=== PATIENT | female | born 1950 | race Caucasian/White ===

== ENCOUNTER 2016-11-10 17:52 | Inpatient (IN) | payer OTHER ==
[~2016-11-10] VITALS: Ht 157.5 cm; Wt 64.5 kg
[2016-11-10] MEDS ORDERED: NORTRIPTYLINE H10 MG PO (18:17)
[2016-11-10] MEDS ORDERED: TOLTERODINE TART4 MG PO (18:17)
[2016-11-10] MEDS ORDERED: QUINAPRIL HCL40 MG PO (18:18)
[2016-11-10] MEDS ORDERED: ALPRAZOLAM1 MG PO (18:18)
[2016-11-10] MEDS ORDERED: RANITIDINE HCL150 MG PO (18:19)
[2016-11-10] MEDS ORDERED: FLUOXETINE HCL40 MG PO (18:19)
[2016-11-10] MEDS ORDERED: CETIRIZINE HCL10 M2 PO (18:20)
[2016-11-10 18:35] LABS: EOSINOPHIL (%) 1.4 % (0-5); EOSINOPHIL COUNT 0.1 K/uL (0-0.3); HEMATOCRIT 46.7 % (36.0-46.0); IMMATURE GRANULOCYTE (%) 0.4 % (0.0-0.7); INSTRUMENT ABS NEUTROPHIL CT 4.6 K/uL; LYMPHOCYTE COUNT 1.6 K/uL (1.0-2.8); MCHC 33.6 G/DL (30.0-36.0); MCV 89.1 FL (83-99); MEAN PLAT.VOLUME 9.9 uM^3 (9.5-12.4); MONOCYTE (%) 11.2 % (3-12); MONOCYTE COUNT 0.8 K/uL (0-0.8); NEUTROPHIL COUNT 4.6 K/uL (1.8-6.4); PLATELET COUNT 297 K/uL (156-360); RBC DIS.WIDTH-CV 14.1 % (11.8-14.6); RBC DIS.WIDTH-SD 46.2 % (39-53); RED BLOOD COUNT 5.24 M/uL (3.80-5.20); WHITE BLOOD COUNT 7.3 K/uL (4.1-10.2)
[2016-11-10 18:46] LABS: CHLORIDE 107 mEq/L (99-109); POTASSIUM 3.9 mEq/L (3.7-5.4); PROTHROMBIN TIME 10.4 (9.2-11.2); SODIUM 140 mEq/L (136-147)
[2016-11-10 18:48] LABS: GLUCOSE 118 mg/dL (70-99)
[2016-11-10 18:49] LABS: ANION GAP 10 MEQ/L (2-14)
[2016-11-10 18:52] LABS: GFR ESTIMATE (CALCULATED) > 59 mL/min/
[2016-11-10 18:53] LABS: UREA NITROGEN (BUN) 14 mg/dL (9-23)
[2016-11-10 23:52] VITALS: BP 192/102
[2016-11-11 02:49] LABS: HDL CHOLESTEROL 74 MG/DL (Desirable>=50); LDL CHOLESTEROL 133 mg/dL (Desirable<100); NON-HDL CHOLESTEROL 178 mg/dL (Desirable<160); SAMPLE HEMOLYSIS CHECK 0; SAMPLE ICTERIC CHECK 0; SAMPLE LIPEMIA CHECK 0; TOTAL CHOLESTEROL 252 mg/dL (Desirable<200); TRIGLYCERIDES 224 MG/DL (Normal: <150)
[2016-11-11 04:00] VITALS: BP 139/85
[2016-11-11 07:14] LABS: HEMATOCRIT 42.5 % (36.0-46.0); MCH 30.9 PG (29.0-34.0); MCHC 34.4 G/DL (30.0-36.0); MEAN PLAT.VOLUME 10.4 uM^3 (9.5-12.4); PLATELET COUNT 250 K/uL (156-360); RBC DIS.WIDTH-CV 14.2 % (11.8-14.6); RBC DIS.WIDTH-SD 47.2 % (39-53); RED BLOOD COUNT 4.72 M/uL (3.80-5.20); WHITE BLOOD COUNT 5.5 K/uL (4.1-10.2)
[2016-11-11 07:37] LABS: ALKALINE PHOSPHATASE 73 IU/L (3-129); ANION GAP 7 MEQ/L (2-14); CHLORIDE 106 MEQ/L (99-109); GFR ESTIMATE (CALCULATED) > 59 mL/min/; GLUCOSE 90 mg/dL (70-99); POTASSIUM 3.9 MEQ/L (3.7-5.4); SAMPLE HEMOLYSIS CHECK 0; SAMPLE ICTERIC CHECK 0; SAMPLE LIPEMIA CHECK 0; SODIUM 138 MEQ/L (136-147); TOTAL BILIRUBIN 0.5 MG/DL (0.0-1.0); UREA NITROGEN (BUN) 12 mg/dL (9-23)
[2016-11-11 07:40] VITALS: BP 150/75
[2016-11-11 11:20] VITALS: BP 180/87
[2016-11-11 15:06] VITALS: BP 166/77
[2016-11-11 20:00] VITALS: BP 190/92
[2016-11-12] VITALS: BP 156/94
[2016-11-12 04:00] VITALS: BP 175/86
[2016-11-12 06:43] LABS: EOSINOPHIL (%) 2.2 % (0-5); EOSINOPHIL COUNT 0.1 K/uL (0-0.3); HEMATOCRIT 42.5 % (36.0-46.0); IMMATURE GRANULOCYTE (%) 0.2 % (0.0-0.7); INSTRUMENT ABS NEUTROPHIL CT 3.7 K/uL; LYMPHOCYTE COUNT 1.4 K/uL (1.0-2.8); MCH 30.9 PG (29.0-34.0); MCHC 34.6 G/DL (30.0-36.0); MCV 89.5 FL (83-99); MEAN PLAT.VOLUME 10.3 uM^3 (9.5-12.4); MONOCYTE (%) 10.6 % (3-12); MONOCYTE COUNT 0.6 K/uL (0-0.8); NEUTROPHIL (%) 63.3 % (45-76); NEUTROPHIL COUNT 3.7 K/uL (1.8-6.4); PLATELET COUNT 257 K/uL (156-360); RBC DIS.WIDTH-CV 13.9 % (11.8-14.6); RBC DIS.WIDTH-SD 45.4 % (39-53); RED BLOOD COUNT 4.75 M/uL (3.80-5.20); WHITE BLOOD COUNT 5.8 K/uL (4.1-10.2)
[2016-11-12 07:04] LABS: ANION GAP 9 MEQ/L (2-14); CHLORIDE 108 MEQ/L (99-109); GFR ESTIMATE (CALCULATED) > 59 mL/min/; GLUCOSE 87 mg/dL (70-99); POTASSIUM 3.7 MEQ/L (3.7-5.4); SAMPLE HEMOLYSIS CHECK 0; SAMPLE ICTERIC CHECK 0; SAMPLE LIPEMIA CHECK 0; SODIUM 139 MEQ/L (136-147); UREA NITROGEN (BUN) 7 mg/dL (9-23)
[2016-11-12 07:42] VITALS: BP 190/86
[2016-11-12 07:53] LABS: Estimated Average Glucose 117 mg/dL (70-123); HEMOGLOBIN A1c (GLYCOHEMOGLOB) 5.7 % HGB (Below 5.7)
[2016-11-12 11:31] VITALS: BP 158/82
[2016-11-12 15:40] VITALS: BP 160/85
[2016-11-12 19:57] VITALS: BP 178/89
[2016-11-13 00:40] VITALS: BP 192/117
[2016-11-13 03:50] VITALS: BP 166/91
[2016-11-13 07:44] VITALS: BP 143/82
[2016-11-13] MEDS ORDERED: Anxiety Med (11:32)
[2016-11-13 16:06] VITALS: BP 142/80
[2016-11-14] VITALS: BP 131/79
[2016-11-14 08:00] VITALS: BP 131/75
[2016-11-14] MEDS ORDERED: NICOTINE PATCH1 EAC2 TD (11:09)
[2016-11-14] MEDS ORDERED: CLOPIDOGREL75 MG PO (11:09)
[2016-11-14] MEDS ORDERED: APRESOLINE20 MG/ML IV (11:10)
[2016-11-14] MEDS ORDERED: ATORVASTATIN CA40 MG PO (11:10)
[2016-11-14] MEDS ORDERED: LISINOPRIL40 MG PO (11:10)
[2016-11-14] MEDS ORDERED: Magic Mouthwash Garg MM (11:10)
[2016-11-14] MEDS ORDERED: ALPRAZOLAM0.5 MG PO (11:11)
[2016-11-14] MEDS ORDERED: TYLENOL REGULA325 MG PO (11:11)
[2016-11-14] MEDS ORDERED: PEPCID20 MG PO (14:07)
== END 2016-11-14 11:44 | DRG 65 ==
LOC: EME → EDBD 17:52 → EME 17:52 → EDOF 22:33 → 5SOUTH 22:33
PROVIDERS: Emergency Medicine; Internal Medicine
DX: I63.9 Cerebral infarction, unspecified (principal); G81.91 Hemiplegia, unspecified affecting right dominant side; R47.81 Slurred speech; R47.1 Dysarthria and anarthria; E11.9 Type 2 diabetes mellitus without complications; E78.5 Hyperlipidemia, unspecified; F17.210 Nicotine dependence, cigarettes, uncomplicated; F32.9 Major depressive disorder, single episode, unspecified; I10 Essential (primary) hypertension; K21.9 Gastro-esophageal reflux disease without esophagitis; F41.9 Anxiety disorder, unspecified; I69.398 Other sequelae of cerebral infarction; H53.9 Unspecified visual disturbance; Z91.81 History of falling; Z91.14 Patient's other noncompliance with medication regimen
CPT/HCPCS: 70450; 70551; 80048; 80053; 80061; 83036; 85025; 85027; 85610; 92526 GN; 92610 GN; 93005; 93306; 93880; 97530 GO; 97530 GP; 99281; 99285; J0360; J1644; J2060; J7030; S0028

== ENCOUNTER 2016-11-14 08:10 | Inpatient (IN) | payer OTHER ==
[~2016-11-14] VITALS: Ht 157.5 cm; Wt 63.2 kg
[~2016-11-14 08:10] MED LIST: ALPRAZOLAM1 MG PO; Anxiety Med; CETIRIZINE HCL10 M2 PO; FLUOXETINE HCL40 MG PO; NORTRIPTYLINE H10 MG PO; QUINAPRIL HCL40 MG PO; RANITIDINE HCL150 MG PO; TOLTERODINE TART4 MG PO
[2016-11-14] MEDS ORDERED: CLOPIDOGREL75 MG PO (11:09)
[2016-11-14] MEDS ORDERED: NICOTINE PATCH1 EAC2 TD (11:09)
[2016-11-14] MEDS ORDERED: Magic Mouthwash Garg MM (11:10)
[2016-11-14] MEDS ORDERED: LISINOPRIL40 MG PO (11:10)
[2016-11-14] MEDS ORDERED: APRESOLINE20 MG/ML IV (11:10)
[2016-11-14] MEDS ORDERED: ATORVASTATIN CA40 MG PO (11:10)
[2016-11-14] MEDS ORDERED: ALPRAZOLAM0.5 MG PO (11:11)
[2016-11-14] MEDS ORDERED: TYLENOL REGULA325 MG PO (11:11)
[2016-11-14 11:50] VITALS: BP 136/77
[2016-11-14] MEDS ORDERED: PEPCID20 MG PO (14:07)
[2016-11-14 15:19] VITALS: BP 128/72
[2016-11-15 04:43] VITALS: BP 95/55
[2016-11-15 07:08] LABS: HEMATOCRIT 46.5 % (36.0-46.0); MCH 31.3 PG (29.0-34.0); MCHC 35.1 G/DL (30.0-36.0); MCV 89.3 FL (83-99); MEAN PLAT.VOLUME 10.4 uM^3 (9.5-12.4); PLATELET COUNT 260 K/uL (156-360); RBC DIS.WIDTH-CV 14.2 % (11.8-14.6); RBC DIS.WIDTH-SD 46.3 % (39-53); RED BLOOD COUNT 5.21 M/uL (3.80-5.20); WHITE BLOOD COUNT 7.2 K/uL (4.1-10.2)
[2016-11-15 07:38] LABS: ALKALINE PHOSPHATASE 82 IU/L (3-129); ANION GAP 7 MEQ/L (2-14); CHLORIDE 100 MEQ/L (99-109); GFR ESTIMATE (CALCULATED) > 59 mL/min/; GLUCOSE 107 mg/dL (70-99); POTASSIUM 3.9 MEQ/L (3.7-5.4); SAMPLE HEMOLYSIS CHECK 0; SAMPLE ICTERIC CHECK 0; SAMPLE LIPEMIA CHECK 0; SODIUM 134 MEQ/L (136-147); TOTAL BILIRUBIN 0.5 MG/DL (0.0-1.0)
[2016-11-15 07:42] LABS: UREA NITROGEN (BUN) 24 mg/dL (9-23)
[2016-11-15 15:49] VITALS: BP 106/63
[2016-11-16 04:49] VITALS: BP 106/59
[2016-11-16 15:00] VITALS: BP 108/64
[2016-11-17 05:27] VITALS: BP 99/57
[2016-11-17 08:49] VITALS: BP 120/76
[2016-11-17 18:00] VITALS: BP 115/63
[2016-11-17 19:20] VITALS: BP 119/58
[2016-11-17 20:43] VITALS: BP 108/56
[2016-11-18 05:13] VITALS: BP 102/50
[2016-11-18 15:40] VITALS: BP 104/61
[2016-11-19 05:10] VITALS: BP 133/77
[2016-11-19 16:37] VITALS: BP 145/65
[2016-11-20 05:02] VITALS: BP 125/71
[2016-11-20 15:37] VITALS: BP 117/65
[2016-11-21 06:11] VITALS: BP 110/63
[2016-11-21 09:30] VITALS: BP 118/59
[2016-11-21 15:05] VITALS: BP 108/64
[2016-11-22 04:55] VITALS: BP 90/53
[2016-11-22 15:35] VITALS: BP 114/66
[2016-11-23 05:45] VITALS: BP 104/55
[2016-11-23 15:08] VITALS: BP 109/58
[2016-11-24 05:47] VITALS: BP 98/55
[2016-11-24 15:28] VITALS: BP 110/77
[2016-11-25 04:44] VITALS: BP 100/50
[2016-11-25 15:29] VITALS: BP 111/63
[2016-11-26 05:58] VITALS: BP 92/58
[2016-11-26 15:20] VITALS: BP 111/69
[2016-11-27 04:48] VITALS: BP 108/54
[2016-11-27 06:09] LABS: ALKALINE PHOSPHATASE 86 IU/L (3-129); ANION GAP 10 MEQ/L (2-14); CHLORIDE 103 MEQ/L (99-109); GFR ESTIMATE (CALCULATED) > 59 mL/min/; GLUCOSE 97 mg/dL (70-99); POTASSIUM 4.5 MEQ/L (3.7-5.4); SAMPLE HEMOLYSIS CHECK 0; SAMPLE ICTERIC CHECK 0; SAMPLE LIPEMIA CHECK 0; SODIUM 137 MEQ/L (136-147); TOTAL BILIRUBIN 0.3 MG/DL (0.0-1.0); UREA NITROGEN (BUN) 26 mg/dL (9-23)
[2016-11-27 06:21] LABS: BASOPHIL COUNT 0.1 K/uL (0-0.1); EOSINOPHIL (%) 2.2 % (0-5); EOSINOPHIL COUNT 0.2 K/uL (0-0.3); HEMATOCRIT 39.9 % (36.0-46.0); IMMATURE GRANULOCYTE (%) 0.4 % (0.0-0.7); INSTRUMENT ABS NEUTROPHIL CT 3.9 K/uL; LYMPHOCYTE COUNT 1.9 K/uL (1.0-2.8); MCH 30.4 PG (29.0-34.0); MCHC 33.8 G/DL (30.0-36.0); MCV 89.9 FL (83-99); MEAN PLAT.VOLUME 10.6 uM^3 (9.5-12.4); MONOCYTE (%) 10.8 % (3-12); MONOCYTE COUNT 0.7 K/uL (0-0.8); NEUTROPHIL (%) 57.2 % (45-76); NEUTROPHIL COUNT 3.9 K/uL (1.8-6.4); PLATELET COUNT 331 K/uL (156-360); RBC DIS.WIDTH-CV 13.4 % (11.8-14.6); RBC DIS.WIDTH-SD 44.4 % (39-53); RED BLOOD COUNT 4.44 M/uL (3.80-5.20); WHITE BLOOD COUNT 6.8 K/uL (4.1-10.2)
[2016-11-27 09:25] VITALS: BP 101/62
[2016-11-27 14:01] VITALS: BP 106/63
[2016-11-27 15:00] VITALS: BP 116/67
[2016-11-28 05:03] VITALS: BP 104/59
[2016-11-28 08:58] VITALS: BP 116/55
[2016-11-28 15:15] VITALS: BP 123/71
[2016-11-29 04:20] VITALS: BP 107/56
[2016-11-29 15:08] VITALS: BP 112/79
[2016-11-30 05:52] VITALS: BP 129/67
[2016-11-30 15:50] VITALS: BP 102/62
[2016-12-01 05:32] VITALS: BP 94/51
[2016-12-01 15:38] VITALS: BP 115/66
[2016-12-02 05:41] VITALS: BP 111/58
[2016-12-02 15:19] VITALS: BP 101/75
[2016-12-03 05:36] VITALS: BP 98/54
[2016-12-03 16:19] VITALS: BP 103/63
[2016-12-04 05:38] VITALS: BP 99/54
[2016-12-04 15:58] VITALS: BP 117/75
[2016-12-04 22:46] LABS: ADD MIUA? YES; BILIRUBIN NEGATIVE; BLOOD NEGATIVE; COLOR YELLOW ((YELLOW)); GLUCOSE (STRIP) NEGATIVE; KETONES NEGATIVE; LEUKOCYTES LARGE; NITRITE POSITIVE; PROTEIN (STRIP) NEGATIVE; SPECIFIC GRAVITY 1.009 (1.000-1.030); UROBILINOGEN 0.2 MG/DL (0.2-1.0)
[2016-12-04 22:52] LABS: BACTERIA RARE /HPF; EPITHELIAL CELLS RARE /HPF; HYALINE CASTS 0-5 /LPF; MUCUS TRACE /LPF; RED BLOOD CELLS 0-5 /HPF (0-5); WHITE BLOOD CELLS TNTC /HPF (0-5); WHITE BLOOD CELLS CLUMP RARE /HPF (0-5)
[2016-12-05 04:26] VITALS: BP 84/52
[2016-12-05 06:07] VITALS: BP 104/52
[2016-12-05 10:39] VITALS: BP 127/86
[2016-12-05 17:18] VITALS: BP 104/63
[2016-12-06 04:53] VITALS: BP 92/50
[2016-12-06 15:29] VITALS: BP 107/64
[2016-12-07 05:41] VITALS: BP 91/51
[2016-12-07 15:49] VITALS: BP 95/67
[2016-12-08 06:50] VITALS: BP 97/56
[2016-12-08 15:48] VITALS: BP 79/53
[2016-12-09 05:33] VITALS: BP 84/45
[2016-12-09 15:30] VITALS: BP 114/65
[2016-12-10 05:51] VITALS: BP 91/50
[2016-12-10 15:32] VITALS: BP 121/71
[2016-12-11 05:05] VITALS: BP 91/57
[2016-12-11 08:42] VITALS: BP 124/73
[2016-12-11 15:53] VITALS: BP 94/56
[2016-12-12 05:34] VITALS: BP 85/48
[2016-12-12 15:29] VITALS: BP 115/71
[2016-12-12 21:00] VITALS: BP 112/69
[2016-12-13 05:05] VITALS: BP 96/50
[2016-12-13 15:55] VITALS: BP 117/65
[2016-12-14 05:16] VITALS: BP 104/55
[2016-12-14 07:45] VITALS: BP 111/69
[2016-12-14 15:34] VITALS: BP 108/58
[2016-12-15 04:45] VITALS: BP 81/53
[2016-12-15 15:00] VITALS: BP 122/72
[2016-12-16 06:27] VITALS: BP 101/57
[2016-12-16 15:11] VITALS: BP 120/70
[2016-12-17 05:51] VITALS: BP 99/55
[2016-12-17 09:30] VITALS: BP 118/72
[2016-12-17 15:59] VITALS: BP 115/68
[2016-12-18 04:33] VITALS: BP 107/56
[2016-12-18 09:00] VITALS: BP 126/76
[2016-12-18 16:24] VITALS: BP 135/78
[2016-12-19 04:30] VITALS: BP 133/82
[2016-12-19 05:48] LABS: HEMATOCRIT 33.6 % (36.0-46.0); MCH 31.6 PG (29.0-34.0); MCHC 35.1 G/DL (30.0-36.0); MCV 90.1 FL (83-99); MEAN PLAT.VOLUME 10.5 uM^3 (9.5-12.4); PLATELET COUNT 238 K/uL (156-360); RBC DIS.WIDTH-CV 13.6 % (11.8-14.6); RED BLOOD COUNT 3.73 M/uL (3.80-5.20); WHITE BLOOD COUNT 5.9 K/uL (4.1-10.2)
[2016-12-19 06:57] LABS: ALKALINE PHOSPHATASE 84 IU/L (3-129); ANION GAP 9 MEQ/L (2-14); CHLORIDE 105 MEQ/L (99-109); GFR ESTIMATE (CALCULATED) > 59 mL/min/; GLUCOSE 88 mg/dL (70-99); POTASSIUM 4.2 MEQ/L (3.7-5.4); SAMPLE HEMOLYSIS CHECK 0; SAMPLE ICTERIC CHECK 0; SAMPLE LIPEMIA CHECK 0; SODIUM 139 MEQ/L (136-147); TOTAL BILIRUBIN 0.3 MG/DL (0.0-1.0); UREA NITROGEN (BUN) 20 mg/dL (9-23)
[2016-12-19 09:03] VITALS: BP 123/67
[2016-12-19 17:30] VITALS: BP 139/80
[2016-12-20 04:52] VITALS: BP 89/53
[2016-12-20 08:46] VITALS: BP 117/65
[2016-12-20 16:00] VITALS: BP 108/62
[2016-12-21 04:25] VITALS: BP 106/55
[2016-12-21 09:50] VITALS: BP 126/71
[2016-12-21 15:43] VITALS: BP 119/71
[2016-12-22 05:31] VITALS: BP 100/55
[2016-12-22 15:57] VITALS: BP 122/74
[2016-12-23 06:12] VITALS: BP 109/62
[2016-12-23 09:50] VITALS: BP 106/60
[2016-12-23 15:00] VITALS: BP 121/73
[2016-12-24 05:48] VITALS: BP 96/52
[2016-12-24 08:52] VITALS: BP 114/63
[2016-12-24 15:17] VITALS: BP 119/76
[2016-12-25 05:30] VITALS: BP 100/53
[2016-12-25] MEDS ORDERED: ATORVASTATIN CA40 MG PO (14:36)
[2016-12-25] MEDS ORDERED: FLUOXETINE HCL20 MG PO (14:36)
[2016-12-25] MEDS ORDERED: LORATADINE10 M2 PO (14:36)
[2016-12-25] MEDS ORDERED: AVENTYL,PAMELOR10 MG PO (14:36)
[2016-12-25] MEDS ORDERED: ALPRAZOLAM0.5 MG PO (14:36)
[2016-12-25] MEDS ORDERED: DITROPAN5 MG PO (14:36)
[2016-12-25] MEDS ORDERED: CLOPIDOGREL75 MG PO (14:36)
[2016-12-25] MEDS ORDERED: LISINOPRIL5 MG PO (14:36)
[2016-12-25] MEDS ORDERED: NICODERM CQ1 EAC1 TD (14:50)
[2016-12-25 15:41] VITALS: BP 104/56
[2016-12-26 05:34] VITALS: BP 108/57
== END 2016-12-26 12:06 | DRG 57 ==
LOC: 3WEST 08:10 → EDPENDDISDT 12-12 → 3WEST 12-20 07:09 → EDPENDDISDT 12-26 → 3WEST 12-26 12:06
PROVIDERS: Physical Medicine & Rehabilitation Pain Medicine; Psychiatry & Neurology Neurology
PROC: F07M0ZZ Range of Motion and Joint Mobility Treatment of Musculoskeletal System - Whole Body (ICD-10-PCS; principal; 2016-11-14)
DX: I69.351 Hemiplegia and hemiparesis following cerebral infarction affecting right dominant side (principal); I69.320 Aphasia following cerebral infarction; I69.391 Dysphagia following cerebral infarction; R13.10 Dysphagia, unspecified; E87.1 Hypo-osmolality and hyponatremia; M79.641 Pain in right hand; N39.0 Urinary tract infection, site not specified; B95.2 Enterococcus as the cause of diseases classified elsewhere; R27.0 Ataxia, unspecified; T43.225A Adverse effect of selective serotonin reuptake inhibitors, initial encounter; D64.9 Anemia, unspecified; I10 Essential (primary) hypertension; F41.9 Anxiety disorder, unspecified; F32.9 Major depressive disorder, single episode, unspecified; E78.00 Pure hypercholesterolemia, unspecified; E78.5 Hyperlipidemia, unspecified; G89.0 Central pain syndrome; K21.9 Gastro-esophageal reflux disease without esophagitis; F17.200 Nicotine dependence, unspecified, uncomplicated; Z88.0 Allergy status to penicillin; Z79.02 Long term (current) use of antithrombotics/antiplatelets
CPT/HCPCS: 73130; 80053; 81003; 85025; 85027; 87077; 87086; 87186; 92507 GN; 92523 GN; 92526 GN; 97110 GO; 97112 GO; 97530 GP; G0283 GO; J1650

== ENCOUNTER 2017-02-08 20:14 | Emergency (ER) | payer OTHER ==
[~2017-02-08] VITALS: Ht 157.5 cm; Wt 62.5 kg
[~2017-02-08 20:14] MED LIST changes: +ALPRAZOLAM0.5 MG PO; +APRESOLINE20 MG/ML IV; +ATORVASTATIN CA40 MG PO; +AVENTYL,PAMELOR10 MG PO; +CLOPIDOGREL75 MG PO; +DITROPAN5 MG PO; +FLUOXETINE HCL20 MG PO; +LISINOPRIL40 MG PO; +LISINOPRIL5 MG PO; +LORATADINE10 M2 PO; +Magic Mouthwash Garg MM; +NICODERM CQ1 EAC1 TD; +NICOTINE PATCH1 EAC2 TD; +PEPCID20 MG PO; +TYLENOL REGULA325 MG PO
[2017-02-08 21:47] LABS: EOSINOPHIL (%) 2.3 % (0-5); EOSINOPHIL COUNT 0.2 K/uL (0-0.3); HEMATOCRIT 41.4 % (36.0-46.0); IMMATURE GRANULOCYTE (%) 0.1 % (0.0-0.7); INSTRUMENT ABS NEUTROPHIL CT 4.9 K/uL; LYMPHOCYTE COUNT 1.8 K/uL (1.0-2.8); MCH 30.5 PG (29.0-34.0); MCHC 33.3 G/DL (30.0-36.0); MCV 91.4 FL (83-99); MONOCYTE (%) 6.3 % (3-12); MONOCYTE COUNT 0.5 K/uL (0-0.8); NEUTROPHIL (%) 66.1 % (45-76); NEUTROPHIL COUNT 4.9 K/uL (1.8-6.4); PLATELET COUNT 322 K/uL (156-360); RBC DIS.WIDTH-CV 13.3 % (11.8-14.6); RBC DIS.WIDTH-SD 44.9 % (39-53); RED BLOOD COUNT 4.53 M/uL (3.80-5.20); WHITE BLOOD COUNT 7.3 K/uL (4.1-10.2)
[2017-02-08 21:55] LABS: CHLORIDE 106 mEq/L (99-109); POTASSIUM 3.6 mEq/L (3.7-5.4); SODIUM 140 mEq/L (136-147)
[2017-02-08 21:56] LABS: GLUCOSE 90 mg/dL (70-99)
[2017-02-08 21:58] LABS: ANION GAP 12 MEQ/L (2-14)
[2017-02-08 22:00] LABS: GFR ESTIMATE (CALCULATED) > 59 mL/min/; SERUM ETHYL ALCOHOL 84 mg/dL
[2017-02-08 22:01] LABS: UREA NITROGEN (BUN) 6 mg/dL (9-23)
[2017-02-09 02:06] VITALS: BP 117/72
== END 2017-02-09 02:14 | disposition home or self-care (01) ==
LOC: EME 20:14
PROVIDERS: Emergency Medicine
DX: S09.90XA Unspecified injury of head, initial encounter (principal); M25.511 Pain in right shoulder; R07.9 Chest pain, unspecified; W01.198A Fall on same level from slipping, tripping and stumbling with subsequent striking against other object, initial encounter; F41.1 Generalized anxiety disorder; F32.9 Major depressive disorder, single episode, unspecified; I69.351 Hemiplegia and hemiparesis following cerebral infarction affecting right dominant side; K21.9 Gastro-esophageal reflux disease without esophagitis; J44.9 Chronic obstructive pulmonary disease, unspecified; I10 Essential (primary) hypertension; Z88.0 Allergy status to penicillin; F17.200 Nicotine dependence, unspecified, uncomplicated; M85.80 Other specified disorders of bone density and structure, unspecified site
CPT/HCPCS: 70450; 71010; 71020; 73030; 80048; 85025; 90839; 93005; 99281; 99284; G0480

== ENCOUNTER 2017-04-12 19:20 | Emergency (ER) | payer OTHER ==
[~2017-04-12] VITALS: Ht 157.5 cm; Wt 59.0 kg
[2017-04-12 20:32] LABS: BASOPHIL COUNT 0.1 K/uL (0-0.1); EOSINOPHIL (%) 2.2 % (0-5); EOSINOPHIL COUNT 0.2 K/uL (0-0.3); HEMATOCRIT 40.3 % (36.0-46.0); IMMATURE GRANULOCYTE (%) 0.3 % (0.0-0.7); INSTRUMENT ABS NEUTROPHIL CT 3.8 K/uL; LYMPHOCYTE COUNT 2.3 K/uL (1.0-2.8); MCH 30.9 PG (29.0-34.0); MCHC 33.5 G/DL (30.0-36.0); MCV 92.2 FL (83-99); MEAN PLAT.VOLUME 10.3 uM^3 (9.5-12.4); MONOCYTE (%) 6.6 % (3-12); MONOCYTE COUNT 0.5 K/uL (0-0.8); NEUTROPHIL COUNT 3.8 K/uL (1.8-6.4); PLATELET COUNT 307 K/uL (156-360); RBC DIS.WIDTH-CV 13.3 % (11.8-14.6); RBC DIS.WIDTH-SD 45.8 % (39-53); RED BLOOD COUNT 4.37 M/uL (3.80-5.20); WHITE BLOOD COUNT 6.8 K/uL (4.1-10.2)
[2017-04-12 20:37] LABS: PROTHROMBIN TIME 11.7 SEC (10.2-12.9)
[2017-04-12 20:39] LABS: PTT 30.9 SEC (25-37)
[2017-04-12 20:42] LABS: CHLORIDE 106 mEq/L (99-109); POTASSIUM 3.6 mEq/L (3.7-5.4)
[2017-04-12 20:43] LABS: SODIUM 138 mEq/L (136-147)
[2017-04-12 20:44] LABS: GLUCOSE 91 mg/dL (70-99)
[2017-04-12 20:46] LABS: ANION GAP 10 MEQ/L (2-14)
[2017-04-12 20:47] LABS: SERUM ETHYL ALCOHOL 146 mg/dL
[2017-04-12 20:48] LABS: GFR ESTIMATE (CALCULATED) > 59 mL/min/
[2017-04-12 20:49] LABS: UREA NITROGEN (BUN) 5 mg/dL (9-23)
[2017-04-12 20:54] LABS: TROP-I INTERPRETATION NEGATIVE; TROPONIN-I < 0.01 ng/mL (0.0-0.30)
[2017-04-12 21:52] VITALS: BP 117/74
== END 2017-04-12 21:52 | disposition home or self-care (01) ==
LOC: EME 19:20
PROVIDERS: Emergency Medicine
DX: F10.129 Alcohol abuse with intoxication, unspecified (principal); S00.12XA Contusion of left eyelid and periocular area, initial encounter; S70.01XA Contusion of right hip, initial encounter; I69.351 Hemiplegia and hemiparesis following cerebral infarction affecting right dominant side; I69.328 Other speech and language deficits following cerebral infarction; F17.210 Nicotine dependence, cigarettes, uncomplicated; K21.9 Gastro-esophageal reflux disease without esophagitis; J44.9 Chronic obstructive pulmonary disease, unspecified; I10 Essential (primary) hypertension; F41.9 Anxiety disorder, unspecified; F32.9 Major depressive disorder, single episode, unspecified; W17.89XA Other fall from one level to another, initial encounter; Y90.6 Blood alcohol level of 120-199 mg/100 ml; Z88.0 Allergy status to penicillin; Z88.5 Allergy status to narcotic agent
CPT/HCPCS: 70450; 73502; 80048; 84484; 85025; 85610; 85730; 93005; 99281; 99284; G0480

== ENCOUNTER 2017-07-16 13:39 | Emergency (ER) | payer OTHER ==
[~2017-07-16] VITALS: Ht 157.5 cm; Wt 56.4 kg
[2017-07-16] MEDS ORDERED: AVENTYL,PAMELOR10 MG PO (16:08)
[2017-07-16] MEDS ORDERED: DITROPAN XL5 MG PO (16:09)
[2017-07-16 16:43] LABS: HEMATOCRIT 41.5 % (36.0-46.0); HEMOGLOBIN 14.2 G/DL (11.9-15.5); MCH 30.1 PG (29.0-34.0); MCHC 34.2 G/DL (30.0-36.0); MCV 88.1 FL (83-99); PLATELET COUNT 300 K/uL (156-360); RBC DIS.WIDTH-CV 13.7 % (11.8-14.6); RBC DIS.WIDTH-SD 44.6 % (39-53); RED BLOOD COUNT 4.71 M/uL (3.80-5.20); WHITE BLOOD COUNT 7.5 K/uL (4.1-10.2)
[2017-07-16 16:52] LABS: CHLORIDE 110 mEq/L (99-109); POTASSIUM 3.8 mEq/L (3.7-5.4)
[2017-07-16 16:53] LABS: SODIUM 143 mEq/L (136-147)
[2017-07-16 16:54] LABS: GLUCOSE 101 mg/dL (70-99); PTT 32.6 SEC (25-37)
[2017-07-16 16:58] LABS: CREATININE 0.7 mg/dL (0.6-1.3); GFR ESTIMATE (CALCULATED) > 59 mL/min/
[2017-07-16 16:59] LABS: UREA NITROGEN (BUN) 8 mg/dL (9-23)
[2017-07-16 19:58] VITALS: BP 137/101
== END 2017-07-16 19:59 | disposition home or self-care (01) ==
LOC: EME 13:39
PROVIDERS: Emergency Medicine
DX: Z04.1 Encounter for examination and observation following transport accident (principal); I69.951 Hemiplegia and hemiparesis following unspecified cerebrovascular disease affecting right dominant side; Z79.01 Long term (current) use of anticoagulants; V47.1XXA Car passenger injured in collision with fixed or stationary object in nontraffic accident, initial encounter; I10 Essential (primary) hypertension; J43.9 Emphysema, unspecified; F17.200 Nicotine dependence, unspecified, uncomplicated; F32.9 Major depressive disorder, single episode, unspecified; K21.9 Gastro-esophageal reflux disease without esophagitis; F41.9 Anxiety disorder, unspecified; Z88.5 Allergy status to narcotic agent
CPT/HCPCS: 70450; 71260; 72125; 74177; 80048; 85027; 85610; 85730; 99281; 99285